=== PATIENT | female | born 2000 | race Caucasian/White ===

== ENCOUNTER 2024-02-24 15:05 | Emergency (ER) | payer BC, SELFPAY ==
[2024-02-24 15:08] VITALS: BP 127/72; PULSE 101; RESP 16; TEMP 36.5; O2SAT 100; BMI 22.1
--- NOTE | 2024-02-24 15:24 | CRLHL7_ITS ---
For Patients: As a result of the Cures Act, medical imaging exams and procedure reports are released immediately into your electronic medical record. You may view this report before your referring provider. If you have questions, please contact your health care provider. Indication: Injury. Technique: Left clavicle 2 views. Comparison: None. Findings: Acute angulated fracture of the mid left clavicle. Remainder of the exam is unremarkable. Dictated by Dane Gaston MD @ 02/24/2024 4:14:25 PM (Electronically Signed)
--- NOTE | 2024-02-24 15:31 | ED_ITS ---
HPI - Extremity Injury (Upper) General Chief Complaint: Extremity Pain/Injury, Upper Stated Complaint: Collarbone injury L side Time Seen by Provider: 02/24/24 15:21 History of Present Illness HPI narrative: This 24-year-old female comes in with an injury to her left clavicle. 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 She had a previous fracture of this clavicle but does come in today with a deformity in this area with associated tenderness. She does not report any other injury. Related Data Previous Rx's ?Medication ?Instructions ?Recorded hydrocodone 5 mg-acetaminophen 325 1 tab PO Q4-6H PRN pain #20 tabs 02/24/24 mg tablet Allergies Allergy/AdvReac Type Severity Reaction Status Date / Time amoxicillin Allergy rash Verified 02/24/24 15:16 codeine Allergy Gastrointestinal Verified 02/24/24 15:16 Upset doxycycline Allergy Gastrointestinal Verified 02/24/24 15:16 Upset oxycodone Allergy Nausea Verified 02/24/24 15:16 Penicillins Allergy Anaphylaxis Verified 02/24/24 15:16 Review of Systems Status of ROS: Reports: 10 or more systems reviewed and unremarkable except as noted in History and below Narrative: Constitutional: No fevers, no weight gain or loss. Eyes: No discharge. No vision changes. HENT: No congestion, no sore throat, no ear pain. Cardiovascular: No chest pain, no palpitations. Respiratory: No shortness of breath, no wheezes, no cough. Gastrointestinal: No abdominal pain, no vomiting, no diarrhea. Genitourinary: No dysuria, no hematuria. Musculoskeletal: Left shoulder injury. Skin: No rashes, no pruritis. Neurological: No dizziness, weakness, sensory change, speech change. Endo/Heme/Allergies: No bruising or bleeding. No polydipsia. Pysch: no suicidality, no anxiety, no insomnia. All other systems reviewed and are negative. PFSH PFSH Social History Smoking Status: Never smoker How often do you have a drink containing alcohol: never AUDIT-C Alcohol total score: 0 Non-prescribed substance use: denies use Exam Narrative: Exam Narrative: Constitutional: Well-developed, well-nourished, no acute distress. HEENT: Normocephalic, atraumatic. Neck: Normal range of motion. Nontender. Supple. Heart: Regular. No murmurs. Normal rate. Intact distal pulses. Lungs: Clear to auscultation. No chest discomfort. No wheezes, rhonchi, or rales. Abdomen: Normal bowel sounds. Nontender. No rebound tenderness. Genitalia: Deferred. Back: No midline tenderness. Normal range of motion. Extremities: Patient's left arm is in a sling. She has tenderness when palpating over the left clavicle and there appears to be a step-off with deformity of the clavicle. Skin: Intact. No rash. Warm. No erythema or pallor. Neurologic: No altered sensation. No weakness. Alert and oriented. Psychiatric: No suicidality. No anxiety or depression. No insomnia. Nursing notes and vitals signs are reviewed. Const: Vital Signs, click to edit/add: Vital Signs - 24 hr 02/24/24 15:08 Temperature 97.7 F Pulse Rate [Left P ulse Oximeter] 101 H Respiratory Rate 16 Blood Pressure [Ri ght Upper Arm] 127/72 Pulse Oximetry 100 Oxygen Delivery Me thod Room Air Course Vital Signs Vital signs: Initial Vital Signs Temperature 97.7 F 02/24/24 15:08 Temperature Source Oral 02/24/24 15:08 Pulse Rate 101 H 02/24/24 15:08 Respiratory Rate 16 02/24/24 15:08 Blood Pressure 127/72 02/24/24 15:08 Blood Pressure Mean 90 02/24/24 15:08 Blood Pressure Position Sitting 02/24/24 15:08 Pulse Oximetry 100 02/24/24 15:08 Oxygen Delivery Method Room Air 02/24/24 15:08 Vital Signs Temperature 97.7 F 02/24/24 15:08 Pulse Rate 101 H 02/24/24 15:08 Respiratory Rate 16 02/24/24 15:08 Blood Pressure 127/72 02/24/24 15:08 Pulse Oximetry 100 02/24/24 15:08 Oxygen Delivery Method Room Air 02/24/24 15:08 Temperature 97.7 F 02/24/24 15:08 Pulse Rate 101 H 02/24/24 15:08 Respiratory Rate 16 02/24/24 15:08 Blood Pressure 127/72 02/24/24 15:08 Pulse Oximetry 100 02/24/24 15:08 Oxygen Delivery Method Room Air 02/24/24 15:08 Medications Administered Medications: Discontinued Medications Generic Name Dose Route Start Last Admin Trade Name Jay Jay PRN Reason Stop Dose Admin Hydrocodone Bitart/Acetaminophen 1 tab 02/24/24 15:53 02/24/24 15:57 Hydrocodone-Acetamin 5-325 Mg 1 Tab PO 02/24/24 15:54 1 tab ONCE ONE Administration Fentanyl 75 mcg 02/24/24 16:10 02/24/24 16:20 Fentanyl 100 Mcg/2 Ml Inj NOSTRIL-L 02/24/24 16:11 75 mcg ONCE ONE Administration MDM - Extremity Injury (Upper) MDM Narrative Medical decision making narrative: This patient comes in with an injury to her left clavicle. X-ray images are obtained and show a fracture in the midshaft with significant angulation but no otherwise displacement of the fracture edges. She received an oral dose of [place] and was placed in a clavicle strap. She also has a sling that can be used if needed. She is advised to follow-up with orthopedic clinic and states that s he goes to school in the [facility] area and does have an orthopedic surgeon at she is connected with. She received a prescription for [place] for ongoing pain management. Discharge Plan Discharge Clinical Impression: Fracture of clavicle Additional Instructions: Follow-up with orthopedic clinic for ongoing management. Where clavicle strap and sling for additional comfort and position. Take medication as needed and directed. Prescriptions: New hydrocodone-acetaminophen 5-325 mg tablet 1 tab PO Q4-6H PRN (Reason: pain) Qty: 20 0RF Stand Alone Forms: MyHealth Info Instructions
[2024-02-24] MEDS: HYDROCODONE-ACETAMIN 5-325 MG 1 TAB PO (15:57)
[2024-02-24] MEDS: fentaNYL 100 MCG/2 ML inj 75 MCG NOSTRIL-L (16:20)
[2024-02-24 16:47] VITALS: BP 111/71; PULSE 72; RESP 16; O2SAT 100
== END 2024-02-24 16:49 | disposition home or self-care (01) ==
PROVIDERS: Emergency Provider Emergency Medicine Emergency Medical Services
DX: S42.022A Displaced fracture of shaft of left clavicle, initial encounter for closed fracture (principal); W01.0XXA Fall on same level from slipping, tripping and stumbling without subsequent striking against object, initial encounter; Y93.66 Activity, soccer
CPT/HCPCS: 73000; 99283; 99284; A9270; J3010